=== PATIENT | female | born 1960 | race African-American/Black ===

== ENCOUNTER 2019-11-20 22:11 | Emergency (ER) | payer MEDICAID ==
[~2019-11-20] VITALS: Ht 162.6 cm; Wt 56.8 kg
[~2019-11-20 22:11] MED LIST: ANXIETY; KLONOPIN 0.5MG0.5 MG
[2019-11-20 22:41] LABS: COLLECTION METHOD CLEAN CATCH
[2019-11-20 22:47] LABS: PH 7 (5-8); SQUAMOUS EPITHELIAL None Seen /hpf; URINE APPEARANCE Clear; URINE BACTERIA None Seen /hpf; URINE BILIRUBIN Negative (NEGATIVE); URINE BLOOD 2+ (NEGATIVE); URINE COLOR Colorless; URINE GLUCOSE Negative (NEGATIVE); URINE KETONE Negative (NEGATIVE); URINE LEUKOCYTE ESTERASE Negative (NEGATIVE); URINE NITRATE Negative (NEGATIVE); URINE PROTEIN(semi-quant) Negative (NEGATIVE); URINE RBC 0-2 /hpf; URINE UROBILINOGEN Negative (NEGATIVE)
[2019-11-20 23:01] LABS: TRICYCLIC ANTIDEPRESS URINE NEGATIVE
[2019-11-20 23:33] LABS: BASO % 0.5 % (0.0-2.0); EOS # 0.1 (0.0-0.7); GRAN # 3.8 (1.4-6.5); GRAN % 49.5 % (42.2-75.2); HEMATOCRIT 37.3 % (37.0-47.0); HEMOGLOBIN 12.6 g/dl (12.5-16.0); LYMPH # 3.3 (1.2-3.4); LYMPH % 43.2 % (20.0-51.0); MEAN CELL VOLUME 79 fl (80.0-100.0); MEAN CORPUSCULAR HEMOGLOBIN 27 pg (27.0-31.0); MEAN CORPUSCULAR HGB CONC 34 g/dl (33.0-37.0); MEAN PLATELET VOLUME 8.7 fl (7.4-10.4); MONO # 0.4 (0.1-0.6); MONO % 5.5 % (1.7-9.3); PLATELET COUNT 329 K/mm3 (130-400); RED BLOOD COUNT 4.73 M/mm3 (4.10-5.30); REDCELL DISTRIBUTION WIDTH-CV 14.3 % (11.5-14.5)
[2019-11-20 23:42] LABS: ACETAMINOPHEN < 10 ug/mL (10-30); ALANINE AMINOTRANSFERASE 19 U/L (9-52); ALBUMIN 4.7 gm/dL (3.5-5.0); ALCOHOL(ethanol),MEDICAL 88 mg/dL; ALKALINE PHOSPHATASE 57 U/L (50-136); ANION GAP 9 mmol/L (7-16); AST,SGOT 22 U/L (15-37); BILIRUBIN,TOTAL 0.5 mg/dL (0.0-1.0); BLOOD UREA NITROGEN 10 mg/dL (7-17); CALCIUM 9.3 mg/dL (8.4-10.2); CARBON DIOXIDE 28 mmol/L (22-30); CHLORIDE 108 mmol/L (98-107); GLUCOSE 105 mg/dL (74-106); POTASSIUM 3.3 mmol/L (3.4-5.0); SALICYLATE < 1.0 mg/dL; SODIUM 145 mmol/L (137-145); TOTAL PROTEIN 7.8 gm/dL (6.4-8.2)
[2019-11-21 08:10] VITALS: BP 144/83; PULSE 75; TEMP 97.7
== END 2019-11-21 09:05 ==
LOC: COL.ER 22:11
PROVIDERS: Nurse Practitioner
DX: R45.851 Suicidal ideations (principal); F32.9 Major depressive disorder, single episode, unspecified; I10 Essential (primary) hypertension; F41.9 Anxiety disorder, unspecified; Z98.51 Tubal ligation status; F17.210 Nicotine dependence, cigarettes, uncomplicated

== ENCOUNTER 2021-12-08 10:48 | Emergency (ER) | payer MEDICAID ==
[~2021-12-08] VITALS: Ht 162.6 cm; Wt 45.5 kg
[2021-12-08 11:36] LABS: BASO % 0.2 % (0.0-2.0); GRAN # 8.6 K/mm3 (1.4-6.5); GRAN % 80.1 % (42.2-75.2); HEMOGLOBIN 14.7 g/dl (12.5-16.0); LYMPH # 1.4 K/mm3 (1.2-3.4); LYMPH % 13.1 % (20.0-51.0); MEAN CELL VOLUME 75 fl (80.0-100.0); MEAN CORPUSCULAR HEMOGLOBIN 26 pg (27-31); MEAN CORPUSCULAR HGB CONC 34 g/dl (33.0-37.0); MEAN PLATELET VOLUME 9.1 fl (7.4-10.4); MONO # 0.7 K/mm3 (0.1-0.6); MONO % 6.1 % (1.7-9.3); PLATELET COUNT 327 K/mm3 (130-400); RED BLOOD COUNT 5.71 M/mm3 (4.10-5.30); REDCELL DISTRIBUTION WIDTH-CV 14.2 % (11.5-14.5)
[2021-12-08 11:59] LABS: ALANINE AMINOTRANSFERASE 8 U/L (0-55); ALBUMIN 4.2 gm/dL (3.5-5.0); ALKALINE PHOSPHATASE 80 U/L (40-150); AST,SGOT 13 U/L (5-34); BILIRUBIN,TOTAL 0.6 mg/dL (0.2-1.2); BLOOD UREA NITROGEN 22 mg/dL (10-20); CALCIUM 9.7 mg/dL (8.4-10.2); CARBON DIOXIDE 26 mmol/L (22-29); CREATININE, serum 0.72 mg/dL (0.57-1.11); GLUCOSE 134 mg/dL (70-99); LIPASE < 10 U/L (8-78); TOTAL PROTEIN 7.9 gm/dL (6.2-8.1)
[2021-12-08 12:09] LABS: ALCOHOL(ethanol),MEDICAL < 10 mg/dL (0-10)
[2021-12-08 12:19] LABS: ANION GAP 15 mmol/L (7-16); CHLORIDE 96 mmol/L (98-107); POTASSIUM 3.4 mmol/L (3.5-4.5); SODIUM 137 mmol/L (136-145)
[2021-12-08 13:11] LABS: COLLECTION METHOD CLEAN CATCH
[2021-12-08 13:18] LABS: PH 7 (5-8); URINE APPEARANCE Clear (CLEAR/HAZY); URINE BACTERIA None Seen /hpf (NONE SEEN); URINE BILIRUBIN Negative (NEGATIVE); URINE BLOOD 2+ (NEGATIVE); URINE COLOR Yellow (YELLOW); URINE GLUCOSE Negative (NEGATIVE); URINE KETONE 1+ (NEGATIVE); URINE LEUKOCYTE ESTERASE Trace (NEGATIVE); URINE NITRATE Negative (NEGATIVE); URINE PROTEIN(semi-quant) Negative (NEGATIVE); URINE UROBILINOGEN Negative (NEGATIVE)
[2021-12-08 13:22] LABS: MUCOUS Present (NOT PRESENT); SQUAMOUS EPITHELIAL 0-2 /hpf (0-10)
[2021-12-08 13:31] LABS: TRICYCLIC ANTIDEPRESS URINE NEGATIVE
[2021-12-08] MEDS ORDERED: ZOFRAN ODT4 MG PO (13:46)
[2021-12-08 14:31] VITALS: BP 135/78; PULSE 84; TEMP 98.3
== END 2021-12-08 14:30 | disposition home or self-care (01) ==
LOC: COL.ER 10:48
PROVIDERS: Physician Assistant
DX: R11.2 Nausea with vomiting, unspecified (principal); F41.9 Anxiety disorder, unspecified; F32.A Depression, unspecified; F17.200 Nicotine dependence, unspecified, uncomplicated; Z79.899 Other long term (current) drug therapy
CPT/HCPCS: J2405; J7030

== ENCOUNTER 2022-02-18 12:19 | Emergency (ER) | payer MEDICAID ==
[~2022-02-18] VITALS: Ht 162.6 cm; Wt 45.5 kg
[~2022-02-18 12:19] MED LIST changes: +ZOFRAN ODT4 MG PO
[2022-02-18] MEDS ORDERED: AKTOB 5 ML5 ML OP (12:41)
[2022-02-18 12:50] VITALS: BP 117/74; PULSE 84; TEMP 98.6
== END 2022-02-18 12:50 | disposition home or self-care (01) ==
LOC: COL.ER 12:19
DX: H10.9 Unspecified conjunctivitis (principal)

== ENCOUNTER 2022-05-01 07:50 | Emergency (ER) | payer MEDICAID ==
[~2022-05-01] VITALS: Ht 162.6 cm; Wt 45.5 kg
[~2022-05-01 07:50] MED LIST changes: +AKTOB 5 ML5 ML OP
[2022-05-01 07:57] VITALS: TEMP 98.3
[2022-05-01 08:23] LABS: BASO % 0.1 % (0.0-2.0); EOS % 0.2 % (0.0-4.0); GRAN # 6.7 K/mm3 (1.4-6.5); GRAN % 62.3 % (42.2-75.2); HEMATOCRIT 46.1 % (37.0-47.0); HEMOGLOBIN 15.8 g/dl (12.5-16.0); LYMPH # 3.1 K/mm3 (1.2-3.4); LYMPH % 28.9 % (20.0-51.0); MEAN CELL VOLUME 74 fl (80.0-100.0); MEAN CORPUSCULAR HEMOGLOBIN 25 pg (27-31); MEAN CORPUSCULAR HGB CONC 34 g/dl (33.0-37.0); MEAN PLATELET VOLUME 9.2 fl (7.4-10.4); MONO # 0.9 K/mm3 (0.1-0.6); MONO % 8.1 % (1.7-9.3); PLATELET COUNT 378 K/mm3 (130-400); RED BLOOD COUNT 6.25 M/mm3 (4.10-5.30); REDCELL DISTRIBUTION WIDTH-CV 13.9 % (11.5-14.5)
[2022-05-01 08:36] LABS: ALBUMIN 4.5 gm/dL (3.5-5.0); BILIRUBIN,TOTAL 0.8 mg/dL (0.2-1.2); CALCIUM 10.2 mg/dL (8.4-10.2); CREATININE, serum 0.8 mg/dL (0.57-1.11); POTASSIUM 3.4 mmol/L (3.5-4.5); TOTAL PROTEIN 8.3 gm/dL (6.2-8.1)
[2022-05-01 09:58] LABS: COLLECTION METHOD CLEAN CATCH
[2022-05-01 10:12] LABS: PH 7 (5-8); SQUAMOUS EPITHELIAL 0-2 /hpf (0-10); URINE APPEARANCE Clear (CLEAR/HAZY); URINE BACTERIA Rare /hpf (NONE SEEN); URINE BILIRUBIN Negative (NEGATIVE); URINE BLOOD 2+ (NEGATIVE); URINE COLOR Straw (YELLOW); URINE GLUCOSE Negative (NEGATIVE); URINE KETONE Negative (NEGATIVE); URINE LEUKOCYTE ESTERASE 3+ (NEGATIVE); URINE NITRATE Negative (NEGATIVE); URINE PROTEIN(semi-quant) Negative (NEGATIVE); URINE UROBILINOGEN Negative (NEGATIVE)
[2022-05-01] MEDS ORDERED: ZOFRAN ODT4 MG PO (10:24)
[2022-05-01] MEDS ORDERED: CEPHALEXIN500 M1 PO (10:24)
[2022-05-01 10:46] VITALS: BP 138/99; PULSE 80
== END 2022-05-01 10:48 | disposition home or self-care (01) ==
LOC: COL.ER 07:50
PROVIDERS: Emergency Medicine
DX: N39.0 Urinary tract infection, site not specified (principal); E87.6 Hypokalemia; R74.8 Abnormal levels of other serum enzymes; F17.210 Nicotine dependence, cigarettes, uncomplicated; Z28.310 Unvaccinated for COVID-19
CPT/HCPCS: J2405; J7030; Q9967

== ENCOUNTER 2022-07-31 15:22 | Emergency (ER) | payer MEDICAID ==
[~2022-07-31] VITALS: Ht 162.6 cm; Wt 48.6 kg
[~2022-07-31 15:22] MED LIST changes: +CEPHALEXIN500 M1 PO
[2022-07-31 15:33] VITALS: TEMP 98.7
[2022-07-31 15:54] LABS: BASO % 0.4 % (0.0-2.0); EOS # 0.2 K/mm3 (0.0-0.7); EOS % 1.6 % (0.0-4.0); GRAN # 6.1 K/mm3 (1.4-6.5); HEMATOCRIT 38.9 % (37.0-47.0); HEMOGLOBIN 13.3 g/dl (12.5-16.0); LYMPH # 2.5 K/mm3 (1.2-3.4); LYMPH % 26.6 % (20.0-51.0); MEAN CELL VOLUME 77 fl (80.0-100.0); MEAN CORPUSCULAR HEMOGLOBIN 26 pg (27-31); MEAN CORPUSCULAR HGB CONC 34 g/dl (33.0-37.0); MEAN PLATELET VOLUME 9.2 fl (7.4-10.4); MONO # 0.5 K/mm3 (0.1-0.6); MONO % 5.2 % (1.7-9.3); PLATELET COUNT 334 K/mm3 (130-400); RED BLOOD COUNT 5.08 M/mm3 (4.10-5.30); REDCELL DISTRIBUTION WIDTH-CV 14.6 % (11.5-14.5)
[2022-07-31 16:11] LABS: ALBUMIN 4.5 gm/dL (3.5-5.0); BILIRUBIN,TOTAL 0.2 mg/dL (0.2-1.2); CALCIUM 9.8 mg/dL (8.4-10.2); CREATININE, serum 0.76 mg/dL (0.57-1.11); POTASSIUM 4.1 mmol/L (3.5-4.5); TOTAL PROTEIN 7.2 gm/dL (6.2-8.1)
[2022-07-31 16:52] LABS: COLLECTION METHOD CLEAN CATCH
[2022-07-31 16:57] LABS: PH 8.5 (5.0-8.5); URINE APPEARANCE Clear (CLEAR/HAZY); URINE BLOOD Negative (NEGATIVE); URINE COLOR Yellow (YELLOW); URINE GLUCOSE Negative (NEGATIVE); URINE KETONE Negative (NEGATIVE); URINE NITRATE Negative (NEGATIVE); URINE PROTEIN(semi-quant) Negative (NEGATIVE); URINE UROBILINOGEN 0.2 E.U/dL (0.2-1.0)
[2022-07-31 17:01] LABS: URINE BACTERIA None Seen /hpf (NONE SEEN)
[2022-07-31 17:52] VITALS: BP 156/81; PULSE 72
== END 2022-07-31 17:52 | disposition home or self-care (01) ==
LOC: COL.ER 15:22
PROVIDERS: Emergency Medicine
DX: R10.9 Unspecified abdominal pain (principal); F17.210 Nicotine dependence, cigarettes, uncomplicated; Z28.310 Unvaccinated for COVID-19
CPT/HCPCS: J2270; J2405; J7030

== ENCOUNTER 2022-08-05 18:09 | Emergency (ER) | payer MEDICAID ==
[~2022-08-05] VITALS: Ht 162.6 cm; Wt 53.2 kg
[2022-08-05 18:11] VITALS: TEMP 98.6
[2022-08-05 19:08] LABS: COLLECTION METHOD CLEAN CATCH
[2022-08-05 19:15] LABS: URINE APPEARANCE Clear (CLEAR/HAZY); URINE COLOR Yellow (YELLOW)
[2022-08-05 19:16] LABS: URINE BLOOD TRACE-INTACT (NEGATIVE); URINE GLUCOSE Negative (NEGATIVE); URINE KETONE Negative (NEGATIVE); URINE NITRATE Negative (NEGATIVE); URINE PROTEIN(semi-quant) Negative (NEGATIVE); URINE UROBILINOGEN 0.2 E.U/dL (0.2-1.0)
[2022-08-05 19:19] LABS: SQUAMOUS EPITHELIAL 0-2 /hpf (0-10); URINE BACTERIA Rare /hpf (NONE SEEN)
[2022-08-05] MEDS ORDERED: REMERON30 MG PO (19:29)
[2022-08-05 21:49] VITALS: BP 131/81; PULSE 81
== END 2022-08-05 22:37 | disposition home or self-care (01) ==
LOC: COL.ER 18:09
PROVIDERS: Nurse Practitioner
DX: R10.84 Generalized abdominal pain (principal); F17.210 Nicotine dependence, cigarettes, uncomplicated; Z28.310 Unvaccinated for COVID-19
CPT/HCPCS: J2270; J2405

== ENCOUNTER 2022-08-08 03:40 | Emergency (ER) | payer MEDICAID ==
[~2022-08-08] VITALS: Ht 162.6 cm; Wt 50.0 kg
[~2022-08-08 03:40] MED LIST changes: +REMERON30 MG PO
[2022-08-08 03:43] VITALS: TEMP 98.5
[2022-08-08 04:30] LABS: HEMATOCRIT 39.9 % (37.0-47.0); HEMOGLOBIN 13.7 g/dl (12.5-16.0); MEAN CELL VOLUME 77 fl (80.0-100.0); MEAN CORPUSCULAR HEMOGLOBIN 26 pg (27-31); MEAN CORPUSCULAR HGB CONC 34 g/dl (33.0-37.0); MEAN PLATELET VOLUME 9.3 fl (7.4-10.4); PLATELET COUNT 337 K/mm3 (130-400); RED BLOOD COUNT 5.21 M/mm3 (4.10-5.30)
[2022-08-08 04:35] LABS: COLLECTION METHOD CLEAN CATCH
[2022-08-08 04:46] LABS: ALBUMIN 4.4 gm/dL (3.5-5.0); BILIRUBIN,TOTAL 0.4 mg/dL (0.2-1.2); CALCIUM 10.2 mg/dL (8.4-10.2); CREATININE, serum 0.82 mg/dL (0.57-1.11); POTASSIUM 4.1 mmol/L (3.5-4.5); TOTAL PROTEIN 7.3 gm/dL (6.2-8.1)
[2022-08-08 04:46] LABS: URINE COLOR Colorless (YELLOW)
[2022-08-08 04:47] LABS: URINE APPEARANCE Clear (CLEAR/HAZY); URINE BLOOD TRACE-INTACT (NEGATIVE); URINE GLUCOSE Negative (NEGATIVE); URINE KETONE Negative (NEGATIVE); URINE NITRATE Negative (NEGATIVE); URINE PROTEIN(semi-quant) Negative (NEGATIVE); URINE UROBILINOGEN 0.2 E.U/dL (0.2-1.0)
[2022-08-08 04:56] LABS: TRICYCLIC ANTIDEPRESS URINE NEGATIVE
[2022-08-08 05:29] LABS: EOSINOPHIL 2 % (0-4); LYMPHOCYTE 56 % (20.0-51.0); NEUTROPHILS 34 % (42.0-75.2)
[2022-08-08 05:30] LABS: PLATELET ESTIMATE NORMAL (NORMAL)
[2022-08-08] MEDS ORDERED: ZOFRAN ODT4 MG PO (06:47)
[2022-08-08] MEDS ORDERED: PEPCID 20MG TAB20 MG PO (06:47)
[2022-08-08 06:58] VITALS: BP 145/51; PULSE 85
== END 2022-08-08 07:02 | disposition home or self-care (01) ==
LOC: COL.ER 03:40
PROVIDERS: Emergency Medicine
DX: R10.2 Pelvic and perineal pain (principal); F17.210 Nicotine dependence, cigarettes, uncomplicated; Z28.310 Unvaccinated for COVID-19
CPT/HCPCS: J2060; Q9967

== ENCOUNTER 2024-09-20 11:26 | Emergency (ER) | payer SELFPAY ==
[~2024-09-20] VITALS: Ht 165.1 cm; Wt 56.4 kg
[~2024-09-20 11:26] MED LIST changes: +PEPCID 20MG TAB20 MG PO
[2024-09-20 11:33] VITALS: TEMP 98.7
[2024-09-20 12:31] LABS: BASO % 0.4 % (0.0-2.0); EOS # 0.1 K/mm3 (0.0-0.7); EOS % 1.3 % (0.0-4.0); GRAN # 3.2 K/mm3 (1.4-6.5); GRAN % 47.6 % (42.2-75.2); HEMATOCRIT 37.8 % (37.0-47.0); HEMOGLOBIN 12.7 g/dl (12.5-16.0); LYMPH # 2.9 K/mm3 (1.2-3.4); LYMPH % 42.7 % (20.0-51.0); MEAN CELL VOLUME 77 fl (80.0-100.0); MEAN CORPUSCULAR HEMOGLOBIN 26 pg (27-31); MEAN CORPUSCULAR HGB CONC 34 g/dl (33.0-37.0); MEAN PLATELET VOLUME 9.2 fl (7.4-10.4); MONO # 0.5 K/mm3 (0.1-0.6); MONO % 7.9 % (1.7-9.3); PLATELET COUNT 295 K/mm3 (130-400); RED BLOOD COUNT 4.93 M/mm3 (4.10-5.30); REDCELL DISTRIBUTION WIDTH-CV 15.3 % (11.5-14.5)
[2024-09-20 12:48] LABS: ALANINE AMINOTRANSFERASE 11 U/L (0-55); ALBUMIN 3.6 g/dL (3.4-4.8); ALKALINE PHOSPHATASE 70 U/L (40-150); ANION GAP 12 mmol/L (7-16); AST,SGOT 12 U/L (5-34); BILIRUBIN,TOTAL 0.2 mg/dL (0.2-1.2); BLOOD UREA NITROGEN 10 mg/dL (10-20); CALCIUM 8.9 mg/dL (8.4-10.2); CHLORIDE 105 mEq/L (98-107); CREATININE, serum 0.79 mg/dL (0.57-1.11); GLUCOSE 170 mg/dL (70-99); POTASSIUM 3.9 mEq/L (3.5-4.5); SODIUM 144 mEq/L (136-145); TOTAL PROTEIN 6.4 g/dl (6.2-8.1)
[2024-09-20 12:56] LABS: TROPONIN-I < 0.010 ng/mL (0.00-0.033)
[2024-09-20] MEDS ORDERED: Albuterol 90 MCG/PUFF 8 GM MDI IH ONE (13:00)
[2024-09-20 13:03] LABS: COLLECTION METHOD CLEAN CATCH
[2024-09-20 13:08] LABS: PH 8.5 (5.0-8.5); URINE APPEARANCE CLEAR (CLEAR/HAZY); URINE BLOOD NEGATIVE (NEGATIVE); URINE COLOR YELLOW (YELLOW); URINE GLUCOSE NEGATIVE (NEGATIVE); URINE KETONE NEGATIVE (NEGATIVE); URINE NITRATE NEGATIVE (NEGATIVE); URINE PROTEIN(semi-quant) NEGATIVE (NEGATIVE); URINE UROBILINOGEN 0.2 E.U/dL (0.2-1.0)
[2024-09-20 14:16] VITALS: BP 162/87; PULSE 88
== END 2024-09-20 14:32 | disposition home or self-care (01) ==
LOC: COL.ER 11:26
PROVIDERS: Nurse Practitioner
DX: I10 Essential (primary) hypertension (principal); F17.200 Nicotine dependence, unspecified, uncomplicated